=== PATIENT | female | born 1985 | race African-American/Black ===

== ENCOUNTER 2025-06-12 21:18 | Emergency (ER) | payer BC, MEDICAID, OTHER ==
[2025-06-12 23:02] LABS: Glucose, Urine (Dipstick) Normal (Negative); Leukocyte Negative (Negative); Protein, Urine (Dipstick) 15 mg/dl (Neg-Trace); Specific Gravity, Urine 1.020 (1.005-1.030)
[2025-06-12 23:08] LABS: CAUTI Indications for Culture Pelvic or flank pain; RBC/HPF 0-3 HPF (0-3); WBC/HPF 0-3 HPF (0-3)
[2025-06-12 23:09] LABS: Bacteria/HPF Rare-Few HPF (None Seen)
[2025-06-12 23:10] LABS: Urine Culture Reflex No No
== END 2025-06-13 01:23 | disposition left against medical advice (07) ==
LOC: CSHERS 21:18
DX: O99.891 Other specified diseases and conditions complicating pregnancy (principal); R10.32 Left lower quadrant pain; O09.522 Supervision of elderly multigravida, second trimester; O10.912 Unspecified pre-existing hypertension complicating pregnancy, second trimester; O24.112 Pre-existing type 2 diabetes mellitus, in pregnancy, second trimester; E11.9 Type 2 diabetes mellitus without complications; O99.332 Smoking (tobacco) complicating pregnancy, second trimester; F17.210 Nicotine dependence, cigarettes, uncomplicated; Z3A.17 17 weeks gestation of pregnancy
CPT/HCPCS: 76815; 81001; 99284